=== PATIENT | male | born 1975 ===

== ENCOUNTER 2017-04-14 11:43 | Day surgery (SDC) | payer OTHER ==
[2017-04-13 10:40] VITALS: BMI 34.9
[2017-04-14] MEDS ORDERED: MIDAZOLAM HCL 2 MG/2 ML SINGLE DOSE VIAL ONE ×2 (13:40→13:53)
[2017-04-14] MEDS ORDERED: ceFAZolin SODIUM 1 GM VIAL ONE (13:41)
[2017-04-14] MEDS ORDERED: ceFAZolin SODIUM 1 GM VIAL IVPB ONE (14:05)
[2017-04-14] MEDS ORDERED: PROPOFOL 20 ML ONE (14:08)
--- NOTE | 2017-04-14 15:10 | OP ---
Operative Note - Note: Operative Date: 04/14/17 Pre-Operative Diagnosis: Bladder neck obstruction Operation: Trans urethral vaporization og the Bladder neck Findings: Large globular mass like obstruction Bladder Neck area Implants: Hernandez catheter Post-Operative Diagnosis: Same as Pre-op Surgeon: Laury Licea Anesthesia: Spinal Specimens Removed: Bladder neck tissue
[2017-04-14] MEDS ORDERED: PROMETHAZINE HCL 25 MG/1 ML VIAL IVPUSH PRN (15:13)
[2017-04-14] MEDS ORDERED: oxyCODONE HCL 5 MG TABLET PO PRN (15:13)
[2017-04-14] MEDS ORDERED: ONDANSETRON 4 MG/2 ML VIAL IVPUSH PRN (15:13)
[2017-04-14 17:44] VITALS: TEMP 97.6
[2017-04-14 20:16] VITALS: BP 121/77; PULSE 70
--- NOTE | 2017-04-15 07:55 | OP ---
DATE OF OPERATION: 04/14/2017 SURGEON: Laury Licea MD ANESTHESIA: General. PREOPERATIVE DIAGNOSIS: Bladder neck obstruction, obstructive uropathy, and prostatic hypertrophy. POSTOPERATIVE DIAGNOSIS: Same. PROCEDURE: Transurethral fulguration of bladder neck mass. FINDINGS: Urethra normal. Bladder neck obstructed with a pendulous mass from the bladder neck area from 10 o'clock position to 2 o'clock position. This mass was completely obstructed, and the bladder showed marked trabeculation. Multiple small calculi noted throughout the bladder. The rest of the urethra felt to be normal. DESCRIPTION OF PROCEDURE: Patient in lithotomy position under anesthesia was prepped and draped in the usual manner. Urethra was dilated first up to 28-Wallisian in size. Then, the bipolar scope was introduced into the bladder, and the findings were as noted above. The bladder neck mass was resected and fulgurated without really getting into the prostatic urethra. Multiple bleeding points were electrocoagulated. At the end of the procedure, a good channel was noted. The resection was limited to the bladder neck area, and only in the anterior portion between 10 and 2 o' clock. The resection was not carried on into the prostatic urethra. [place]umontanum area was left alone. At the end of the procedure, no bleeding was noted. A good channel was also noted. A good outflow of the fluid was also observed. Patient tolerated the procedure well and left the operating room in a satisfactory condition. Drew [id number] MTDD
--- NOTE | 2017-04-16 11:45 | PATH ---
Surgical Pathology Report Patient Name: DAVID SORTO [facility]. Rec. #: [id number] /Age/Gender: 1975 (Age: 41) / M Account: [id number] Location: [facility] SUR[facility] Taken: 04/14/2017 Received: 04/15/2017 Reported: 04/16/2017 Physicians: Drew Lemos M.D. Specimen(s) Received BLADDER NECK TISSUE Clinical History Hematuria, hypertrophy of prostate Final Diagnosis BLADDER NECK, TUR: BENIGN UROTHELIAL MUCOSA WITH VASCULAR CONGESTION AND ECTASIA, AND BENIGN PROSTATIC TISSUE WITH NODULAR HYPERPLASIA AND CYSTIC ATROPHY. NO CARCINOMA IDENTIFIED. Electronically Signed Maurizio Pham M.D. Gross Description Received in formalin labeled "bladder neck tissue," is a 1.7 x 1.4 x 0.3 cm aggregate of rajan soft tissue fragments. The specimen is entirely submitted in one cassette. /04/15/2017 saudi04/15/2017
== END 2017-04-14 19:45 | disposition home or self-care (01) ==
LOC: JASU-SURG 11:43
PROVIDERS: ATTEND Urology
PROC: 0T5C8ZZ Destruction of Bladder Neck, Via Natural or Artificial Opening Endoscopic (ICD-10-PCS; principal; 2017-04-14 13:30)
DX: D41.4 Neoplasm of uncertain behavior of bladder (principal); N32.0 Bladder-neck obstruction; N40.1 Benign prostatic hyperplasia with lower urinary tract symptoms
CPT/HCPCS: 88305-TC; 94760